=== PATIENT | female | born 1995 | race Caucasian/White ===

== ENCOUNTER 2020-08-24 19:20 | Emergency (ER) | payer OTHER ==
[~2020-08-24] VITALS: Ht 170.2 cm; Wt 71.6 kg
[2020-08-24 19:30] VITALS: BP 126/78
[2020-08-24] MEDS ORDERED: MULT-245 PO (19:39)
[2020-08-24] MEDS ORDERED: ALBU2.5V8 INH (19:39)
[2020-08-24] MEDS ORDERED: CYAN100016 SL (19:39)
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
== END 2020-08-24 20:39 | disposition home or self-care (01) ==
LOC: ER 19:20
DX: S06.0X0A Concussion without loss of consciousness, initial encounter (principal); J45.909 Unspecified asthma, uncomplicated; Z90.89 Acquired absence of other organs; Z98.890 Other specified postprocedural states; V49.88XA Car occupant (driver) (passenger) injured in other specified transport accidents, initial encounter; Y93.89 Activity, other specified; Y92.413 State road as the place of occurrence of the external cause; Y99.8 Other external cause status
CPT/HCPCS: 99282